=== PATIENT | male | born 1965 | race Caucasian/White ===

== ENCOUNTER 2016-10-09 23:09 | Emergency (ER) | payer OTHER, MEDICAID ==
[2016-10-09 23:24] VITALS: RESP 16
[2016-10-09] MEDS ORDERED: NS 1,000 ML IV ONE (23:28)
[2016-10-09 23:44] LABS: % IMMATURE GRANULYOCYTES 0.2 % (0.0-1.1); ABSOLUTE IMMATURE GRANULOCYTES 0.02 10^3/uL (0.00-0.10); ADD DIFF? NO; ADD MORPH? NO; ADD SCAN? NO; ATYPICAL LYMPHOCYTE FLAG 20 (0-99); FRAGMENT RBC FLAG 0 (0-99); HEMOGLOBIN 16.4 g/dL (13.7-17.5); LEFT SHIFT FLG 0 (0-99); LIPEMIA HEMOLYSIS FLAG 90 (0-99); MEAN CELL HEMOGLOBIN CONCENTR. 35.7 g/dL (32.4-36.7); MEAN CELL VOLUME 81.3 fL (81.5-99.8); MEAN PLATELET VOLUME 8.7 fL (8.7-11.7); PLATELET CLUMPS FLAG 0 (0-99); PLATELET COUNT 225 10^3/uL (150-400); RED BLOOD CELL COUNT 5.66 10^6/uL (4.40-6.38); RED CELL DISTRIBUTION WIDTH 11.9 % (11.5-15.2)
[2016-10-09 23:47] LABS: COLOR YELLOW; LEUKOCYTE ESTERASE,URINE NEGATIVE (NEGATIVE); NITRITE,URINE NEGATIVE (NEGATIVE)
[2016-10-09] MEDS ORDERED: ONDANSETRON 4 MG/2 ML VIAL IVP ONE (23:58)
[2016-10-09 23:59] LABS: ANION GAP 10 mEq/L (8-16); CALCIUM 10.4 mg/dL (8.5-10.4); CARBON DIOXIDE 22 mEq/l (22-31); CHLORIDE 105 mEq/L (97-110); CREATININE 0.9 mg/dL (0.7-1.3); GLOMERULAR FILTRATION RATE > 60; GLUCOSE 107 mg/dL (70-100); POTASSIUM 3.3 mEq/L (3.5-5.2); SODIUM 137 mEq/L (134-144)
[2016-10-09] MEDS ORDERED: fentaNYL 100 MCG/2 ML INJ ONE (23:59)
[2016-10-10] MEDS ORDERED: fentaNYL 100 MCG/2 ML INJ IVP ONE
[2016-10-10] MEDS ORDERED: KETOROLAC 30 MG/1 ML SDV IVP ONE (00:15)
[2016-10-10] MEDS ORDERED: TAMSULOSIN HCL 0.4 MG CAP PO ONE (00:15)
--- NOTE | 2016-10-10 00:15 | EDPHY ---
H & P Stated Complaint: abd pain - Personal History Current Tetanus/Diphtheria Vaccine: Yes - Medical/Surgical History Hx Asthma: Yes Hx Chronic Respiratory Disease: No Hx Diabetes: No Hx Cardiac Disease: No Hx Renal Disease: No Hx Cirrhosis: No Hx Alcoholism: No Hx HIV/AIDS: No Hx Splenectomy or Spleen Trauma: No Other PMH: PSHx: denies. PMHx: high cholesterol, hypertension - Social History Smoking Status: Never smoked HPI/ROS: Chief complaint: Right flank pain History of present illness: This is a 51-year-old male who presents to the emergency department for right flank pain. Patient reports the onset of symptoms this evening when he was going to bed. He denies precipitating factors. He does state certain movements alleviate symptoms. Denies other alleviating or aggravating factors. He denies other associated signs or symptoms including no fevers, no nausea or vomiting, no diarrhea or constipation , no urinary symptoms. He has never had similar. Review of systems: A 10 point review of systems was obtained and other than described above was negative (Hany Chowdhury) - Physical Exam Exam: General Appearance: Alert, nontoxic. Eyes: Pupils equal and round no pallor or injection. ENT, Mouth: Mucous membranes moist. Respiratory: There are no retractions, lungs are clear to auscultation. Cardiovascular: Regular rate and rhythm. Gastrointestinal: Abdomen is soft and nontender, no masses, bowel sounds normal. Genitourinary: No CVA tenderness. Neurological: Alert and oriented x4. Strength and sensation intact and symmetrical. Skin: Warm and dry, no rashes. Musculoskeletal: Neck is supple nontender. Extremities are symmetrical, full range of motion. Psychiatric: Patient is oriented X 3, there is no agitation. (Hany Chowdhury) Constitutional: Initial Vital Signs Temperature (C) 36.5 C 10/09/16 23:20 Heart Rate 92 10/09/16 23:20 Respiratory Rate 16 10/09/16 23:20 Blood Pressure 139/95 H 10/09/16 23:20 O2 Sat (%) 97 10/09/16 23:20 O2 Delivery Mode Room Air Allergies/Adverse Reactions: bee venom protein (honey bee) Allergy (Verified 10/09/16 23:19) Home Medications: Medication Instructions Recorded Tamsulosin HCl [Flomax 0.4 MG (*)] 0.4 mg PO DAILY 4 Days 10/10/16 Medical Decision Making - Diagnostics Imaging Results: Imaging Impressions Abdomen/Pelvis CT 10/09/16 23:28 Impression: 1. Mild right hydronephrosis probably secondary to 1 mm proximal right ureterolithiasis. Additional 3 mm calyceal calculus lower pole right kidney. 2. No left nephrolithiasis or left hydronephrosis. 2. No evidence of appendicitis although there is an appendicolith. 4. Mild constipation. 5. 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 Attention: This CT examination is specifically designed to evaluate patients who are clinically suspected of having acute obstructive uropathy. This examination does not use radiographic contrast, and as such, provides only a limited evaluation of the abdomen, pelvis and retroperitoneum. If there is further clinical suspicion for pathological conditions other than obstructive uropathy, a complete CT evaluation of the abdomen and pelvis utilizing intravenous, oral, and rectal contrast should be considered. Findings and recommendations discussed with Emergency Department physician, MAMADOU Rivera at 0:03 hour, 10/10/2016. Final report concurs with initial preliminary interpretation. ED Course/Re-evaluation: Patient seen under the supervision of my secondary supervising physician Dr. Sandie Chauhan. Patient presents to the emergency department for right flank pain. Patient does appear to have a 1 mm stone in the ureter on CT scan. Blood in the urine. This I believe is consistent with a ureteral calculus. Patient was pain free on presentation to the emergency room, he had recurrence of pain which was symptomatically treated and he was feeling much better. Patient will be discharged home. Home care is discussed including pain management. He is referred to Urology for recheck. Return precautions are given. Patient voiced understanding and agreement with plan. (Hany Chowdhury) PHYSICIAN DOCUMENTATION: The patient was evaluated and managed by the Physician [employer] Operator. My co- signature indicates that I have reviewed this chart and I agree with the findings and plan of care as documented. I am the secondary supervising physician. (Sandie Chauhan) Differential Diagnosis: Included but not limited to cystitis, pyelonephritis, nephrolithiasis, appendicitis (Hany Chowdhury) - Data Points Laboratory Results: Laboratory Results 10/09/16 23:35 10/09/16 23:35 10/09/16 10/09/16 10/09/16 23:35 23:35 23:35 WBC 8.33 10^3/uL 10^3/uL (3.80-9.50) RBC 5.66 10^6/uL 10^6/uL (4.40-6.38) Hgb 16.4 g/dL g/dL (13.7-17.5) Hct 46.0 % % (40.0-51.0) MCV 81.3 fL L fL (81.5-99.8) MCH 29.0 pg pg (27.9-34.1) MCHC 35.7 g/dL g/dL (32.4-36.7) RDW 11.9 % % (11.5-15.2) Plt Count 225 10^3/uL 10^3/uL (150-400) MPV 8.7 fL fL (8.7-11.7) Neut % (Auto) 34.0 % L % (39.3-74.2) Lymph % (Auto) 55.0 % H % (15.0-45.0) Ross % (Auto) 8.3 % % (4.5-13.0) Eos % (Auto) 1.7 % % (0.6-7.6) Baso % (Auto) 0.8 % % (0.3-1.7) Nucleat RBC Rel Count 0.0 % % (0.0-0.2) Absolute Neuts (auto) 2.83 10^3/uL 10^3/uL (1.70-6.50) Absolute Lymphs (auto) 4.58 10^3/uL H 10^3/uL (1.00-3.00) Absolute Monos (auto) 0.69 10^3/uL 10^3/uL (0.30-0.80) Absolute Eos (auto) 0.14 10^3/uL 10^3/uL (0.03-0.40) Absolute Basos (auto) 0.07 10^3/uL 10^3/uL (0.02-0.10) Absolute Nucleated RBC 0.00 10^3/uL 10^3/uL (0-0.01) Immature Gran % 0.2 % % (0.0-1.1) Immature Gran # 0.02 10^3/uL 10^3/uL (0.00-0.10) Sodium 137 mEq/L mEq/L (134-144) Potassium 3.3 mEq/L L mEq/L (3.5-5.2) Chloride 105 mEq/L mEq/L (97-110) Carbon Dioxide 22 mEq/l mEq/l (22-31) Anion Gap 10 mEq/L mEq/L (8-16) BUN 17 mg/dL mg/dL (7-23) Creatinine 0.9 mg/dL mg/dL (0.7-1.3) Estimated GFR > 60 Glucose 107 mg/dL H mg/dL (70-100) Calcium 10.4 mg/dL mg/dL (8.5-10.4) Urine Color YELLOW Urine Appearance HAZY Urine pH 5.0 (5.0-7.5) Ur Specific [place] 1.017 (1.002-1.030) Urine Protein NEGATIVE (NEGATIVE) Urine Ketones NEGATIVE (NEGATIVE) Urine Blood 3+ H (NEGATIVE) Urine Nitrate NEGATIVE (NEGATIVE) Urine Bilirubin NEGATIVE (NEGATIVE) Urine Urobilinogen NEGATIVE EU EU (0.2-1.0) Ur Leukocyte Esterase NEGATIVE (NEGATIVE) Urine RBC 50-182 /hpf H /hpf (0-3) Urine WBC 1-3 /hpf /hpf (0-3) Ur Epithelial Cells NONE SEEN /lpf /lpf (NONE-1+) Urine Mucus TRACE /lpf /lpf (NONE-1+) Urine Glucose NEGATIVE (NEGATIVE) Medications Given: Discontinued Medications Hydrocodone Bitart/Acetaminophen ([place] 5/325mg Prepack#6) 1 btl TAKEHOME EDNOW ONE Stop: 10/10/16 00:22 Last Admin: 10/10/16 00:36 Dose: 1 btl Fentanyl (Sublimaze) 100 mcg IVP EDNOW ONE Stop: 10/10/16 00:01 Last Admin: 10/10/16 00:07 Dose: 100 mcg Sodium Chloride (Ns) 1,000 mls @ 0 mls/hr IV ONCE ONE; Wide Open PRN Reason: Protocol Stop: 10/09/16 23:29 Last Admin: 10/09/16 23:35 Dose: 1,000 mls Ketorolac Tromethamine (Toradol) 30 mg IVP EDNOW ONE Stop: 10/10/16 00:16 Last Admin: 10/10/16 00:15 Dose: 30 mg Ondansetron HCl (Zofran) 4 mg IVP EDNOW ONE Stop: 10/09/16 23:59 Last Admin: 10/10/16 00:08 Dose: 4 mg Ondansetron HCl (Zofran Odt 4 Mg Prepack#2) 1 btl TAKEHOME EDNOW ONE Stop: 10/10/16 00:22 Last Admin: 10/10/16 00:36 Dose: 1 btl Tamsulosin HCl (Flomax) 0.4 mg PO EDNOW ONE Stop: 10/10/16 00:16 Last Admin: 10/10/16 00:36 Dose: 0.4 mg Departure - Departure Disposition: Home, Routine, Self-Care Clinical Impression: Kidney stone on right side Condition: Good Instructions: Kidney Stones (ED) Additional Instructions: Follow-up with Urology for continued evaluation and care In regards to pain control see the following: Use ibuprofen [600] mg [3] times a day for the next 2-3 days for pain In addition You have been prescribed [[place]] for pain. [[place]] contains Tylenol, do not take extra Tylenol/acetaminophen/Apap with it. It is sedating. Use Zofran as needed for nausea and vomiting If symptoms worsen or new symptoms develop return to the emergency room for recheck Referrals: Chula Saez MD [Primary Care Provider] - As per Instructions Florentino Desai MD [Medical Doctor] - As per Instructions Stand Alone Forms: Work Excuse Prescriptions: Tamsulosin HCl [Flomax 0.4 MG (*)] 0.4 mg PO DAILY 4 Days
[2016-10-10] MEDS ORDERED: HYDROCOD/APAP 5/325 PREPACK#6 BTL TAKEHOME ONE (00:21)
[2016-10-10] MEDS ORDERED: ONDANSETRON 4MG PREPACK#2 BTL TAKEHOME ONE (00:21)
[2016-10-10 00:24] LABS: MUCUS TRACE /lpf (NONE-1+); RBC,URINE 50-182 /hpf (0-3)
[2016-10-10 00:49] VITALS: BP 131/93; PULSE 87; TEMP 97.9; O2SAT 95
== END 2016-10-10 00:47 | disposition home or self-care (01) ==
DX: N20.0 Calculus of kidney (principal); E86.9 Volume depletion, unspecified; I10 Essential (primary) hypertension; J45.909 Unspecified asthma, uncomplicated
CPT/HCPCS: 74176; 96361; 96374; 96375; 99285; J1885; J2405; J3010

== ENCOUNTER → 2016-11-07 | Outpatient (CLI) | payer OTHER, MEDICAID | LOC: FIMAGING 10:41 | PROVIDERS: ATTEND Urology | DX: R93.41 Abnormal radiologic findings on diagnostic imaging of renal pelvis, ureter, or bladder (principal) ==

== ENCOUNTER → 2017-02-05 | Outpatient (CLI) | payer OTHER, MEDICAID | LOC: FIMAGING 16:29 | PROVIDERS: ATTEND Family Medicine | DX: M79.605 Pain in left leg (principal) ==